=== PATIENT | female | born 1940 | race Caucasian/White ===

== ENCOUNTER → 2016-09-26 | Outpatient (CLI) | payer OTHER ==
--- NOTE | 2016-09-26 11:21 | REP ---
Clinical: Acute sciatica and back pain. Technique: AP, lateral, bilateral oblique and coned-down views of the lumbosacral spine. Findings: Alignment and lordosis maintained. Moderate multilevel degenerative disc osteophyte complexes are appreciated. Findings include hypertrophic facet changes at L4-5 and L5-L1. No acute fracture / compression injury or subluxation. Impression: 1. Moderate multilevel degenerative disc osteophyte complexes. 2. Alignment maintained without acute fracture / compression injury or subluxation. 3. If the patient remains symptomatic consider MRI for further investigation.
== END ==
LOC: M CLY 10:25
PROVIDERS: ATTEND Family Medicine
DX: M47.817 Spondylosis without myelopathy or radiculopathy, lumbosacral region (principal)

== ENCOUNTER → 2016-10-07 | Outpatient (CLI) | payer OTHER ==
--- NOTE | 2016-10-07 18:27 | REP ---
MR LUMBAR SPINE WITHOUT CONTRAST: HISTORY: Back pain. Decreased signal intensity on T2-weighted images is present in the lumbar intervertebral discs. The disc are decreased in height. These findings are consistent with disc degeneration. There is no disc bulge or herniation at the L1-2 and L2-3 levels. There is hypertrophy of the posterior articulating facets at the L2-3 level. The nerves exit the neural foramina without compression. A diffuse disc bulge is present at the L3-4 level. There is minimal compression of the thecal sac. There is hypertrophy of the posterior articulating facets. The L3 nerves exit the neural foramina without compression. A diffuse disc bulge is present at the L4-5 level. There is minimal compression of the thecal sac. There is hypertrophy of the posterior articulating facets. The L4 nerves exit the neural foramina without compression. A diffuse disc bulge is present at the L5-S1 level. This abuts the thecal sac. There is hypertrophy of the posterior articulating facets. There is compression of the left L5 nerve in the neural foramen. The right L5 nerve exits the neural foramina without compression. The conus medullaris is normal in appearance terminating at the level of the T12-L1 intervertebral disc . Hemangiomas are present in the T12 and L1 vertebral bodies. Normal signal intensity is present in the remaining lumbar vertebral bodies. IMPRESSION: 1. Diffuse disc bulges at the L3-4 and L4-5 levels with minimal thecal sac compression. 2. Diffuse disc bulge at the L5-S1 level. This abuts the thecal sac. There is compression of the left L5 nerve in the neural foramen. Signed by Shukri Angulo MD 10/08/2016 08:16 A
== END ==
LOC: M RAD 15:21
PROVIDERS: ATTEND Family Medicine
DX: M54.17 Radiculopathy, lumbosacral region (principal); M51.26 Other intervertebral disc displacement, lumbar region; M12.88 Other specific arthropathies, not elsewhere classified, other specified site; M51.27 Other intervertebral disc displacement, lumbosacral region
CPT/HCPCS: 72148; G0463

== ENCOUNTER → 2016-12-15 | Outpatient (REF) | payer OTHER ==
[2016-12-15 17:36] LABS: ALBUMIN 3.5 GM/DL (3.2-5.2); ALBUMIN/GLOBULIN RATIO 1.09 (1.00-1.93); ALKALINE PHOSPHATASE 72 U/L (45-117); ALT/SGPT 21 U/L (12-78); ANION GAP 7 MEQ/L (8-16); AST/SGOT 13 U/L (15-37); BILIRUBIN,TOTAL 0.4 MG/DL (0.2-1.0); BLOOD UREA NITROGEN 19 MG/DL (7-18); CALCIUM LEVEL 8.9 MG/DL (8.8-10.2); CARBON DIOXIDE LEVEL 29 MEQ/L (21-32); CHLORIDE LEVEL 105 MEQ/L (98-107); CHOLESTEROL LEVEL 236 MG/DL (<200); CREATININE FOR GFR 0.64 MG/DL (0.55-1.02); GLOMERULAR FILTRATION RATE > 60.0 (>39); GLUCOSE, FASTING 79 MG/DL (83-110); POTASSIUM SERUM 4.4 MEQ/L (3.5-5.1); SODIUM LEVEL 141 MEQ/L (136-145); TOTAL PROTEIN 6.7 GM/DL (6.4-8.2); TRIGLYCERIDES LEVEL 75 MG/DL (<150)
[2016-12-15 19:03] LABS: BASO % 0.4 % (0.0-1.0); EOS # 0.1 K/mm3 (0.0-0.50); LARGE UNSTAINED CELL # 0.1 K/mm3 (0.0-0.4); LARGE UNSTAINED CELL % 1.9 % (0.0-4.0); LYMPH # 1.9 K/mm3 (1.5-4.5); LYMPH % 26.7 % (24.0-44.0); MEAN CORPUSCULAR HEMOGLOBIN 30.5 pg (27.0-33.0); MEAN CORPUSCULAR HGB CONC 33.2 g/dl (32.0-36.5); MEAN CORPUSCULAR VOLUME 91.9 fl (80.0-96.0); MONO # 0.5 K/mm3 (0.0-0.8); MONO % 8.2 % (0.0-5.0); NEUTROPHILS % 60.8 % (36.0-66.0); PLATELET COUNT, AUTOMATED 301 k/mm3 (150-450); RED CELL DISTRIBUTION WIDTH 12.2 % (11.5-14.5); WHITE BLOOD COUNT 6.5 K/mm3 (4.0-10.0)
== END ==
LOC: M SFHCCLAY 09:55
PROVIDERS: ATTEND Family Medicine
DX: Z13.0 Encounter for screening for diseases of the blood and blood-forming organs and certain disorders involving the immune mechanism (principal); E78.2 Mixed hyperlipidemia; E03.9 Hypothyroidism, unspecified; M54.17 Radiculopathy, lumbosacral region; K21.9 Gastro-esophageal reflux disease without esophagitis; Z23 Encounter for immunization; Z79.82 Long term (current) use of aspirin; Z79.899 Other long term (current) drug therapy
CPT/HCPCS: 80053; 80061; 83540; 84436; 84443; 84480; 85025; 90732; G0009; G0463

== ENCOUNTER → 2017-10-05 | Outpatient (REF) | payer OTHER ==
[2017-10-05 12:38] LABS: ALBUMIN 3.6 GM/DL (3.2-5.2); ALBUMIN/GLOBULIN RATIO 1.16 (1.00-1.93); ALKALINE PHOSPHATASE 76 U/L (45-117); ALT/SGPT 22 U/L (12-78); ANION GAP 5 MEQ/L (8-16); AST/SGOT 12 U/L (7-37); BILIRUBIN,TOTAL 0.3 MG/DL (0.2-1.0); BLOOD UREA NITROGEN 22 MG/DL (7-18); CALCIUM LEVEL 8.9 MG/DL (8.8-10.2); CARBON DIOXIDE LEVEL 31 MEQ/L (21-32); CHLORIDE LEVEL 107 MEQ/L (98-107); CHOLESTEROL LEVEL 255 MG/DL (<200); CREATININE FOR GFR 0.75 MG/DL (0.55-1.30); GLOMERULAR FILTRATION RATE > 60.0 (>39); GLUCOSE, FASTING 84 MG/DL (70-100); HDL CHOLESTEROL 51 MG/DL (>40); LDL CHOLESTEROL 175.8 MG/DL (<100); NON-HDL-C 204 MG/DL; POTASSIUM SERUM 4.6 MEQ/L (3.5-5.1); SODIUM LEVEL 143 MEQ/L (136-145); TOTAL PROTEIN 6.7 GM/DL (6.4-8.2); TRIGLYCERIDES LEVEL 141 MG/DL (<150)
== END ==
LOC: M SFHCCLAY 08:14
DX: E78.2 Mixed hyperlipidemia (principal)
CPT/HCPCS: 80053

== ENCOUNTER → 2017-11-19 | Outpatient (REF) | payer OTHER ==
[2017-11-20 10:08] LABS: HEPATITIS C VIRUS ABY INDEX 0.1 INDEX (<0.8)
== END ==
LOC: M SFHCCLAY 11:15
DX: Z11.59 Encounter for screening for other viral diseases (principal)
CPT/HCPCS: 86803

== ENCOUNTER → 2017-12-14 | Outpatient (CLI) | payer OTHER | LOC: M CLY 09:24 | DX: M19.042 Primary osteoarthritis, left hand (principal); M25.742 Osteophyte, left hand; M19.032 Primary osteoarthritis, left wrist; M79.642 Pain in left hand; M25.532 Pain in left wrist | CPT/HCPCS: 73100; G0463 ==

== ENCOUNTER → 2018-02-01 | Outpatient (REF) | payer OTHER ==
[2018-02-01 13:41] LABS: ALBUMIN 3.4 GM/DL (3.2-5.2); ALKALINE PHOSPHATASE 74 U/L (45-117); ALT/SGPT 23 U/L (12-78); ANION GAP 7 MEQ/L (8-16); AST/SGOT 15 U/L (7-37); BILIRUBIN,TOTAL 0.5 MG/DL (0.2-1.0); BLOOD UREA NITROGEN 18 MG/DL (7-18); CALCIUM LEVEL 8.8 MG/DL (8.8-10.2); CARBON DIOXIDE LEVEL 28 MEQ/L (21-32); CHLORIDE LEVEL 107 MEQ/L (98-107); CHOLESTEROL LEVEL 219 MG/DL (<200); CHOLESTEROL RISK RATIO 3.775 (<5); GLOMERULAR FILTRATION RATE > 60.0 (>39); GLUCOSE, FASTING 76 MG/DL (70-100); HDL CHOLESTEROL 58 MG/DL (>40); LDL CHOLESTEROL 131 MG/DL (<100); NON-HDL-C 161 MG/DL; POTASSIUM SERUM 4.4 MEQ/L (3.5-5.1); SODIUM LEVEL 142 MEQ/L (136-145); TOTAL PROTEIN 6.8 GM/DL (6.4-8.2); TRIGLYCERIDES LEVEL 151 MG/DL (<150)
== END ==
LOC: M SFHCCLAY 09:34
DX: E78.2 Mixed hyperlipidemia (principal); E03.9 Hypothyroidism, unspecified
CPT/HCPCS: 84443

== ENCOUNTER → 2018-08-02 | Outpatient (REF) | payer OTHER | LOC: M SFHCCLAY 09:17 | PROVIDERS: ATTEND Family Medicine | DX: E03.9 Hypothyroidism, unspecified (principal) ==

== ENCOUNTER → 2019-02-03 | Outpatient (REF) | payer MEDICARE ==
[2019-02-03 17:03] LABS: ALBUMIN 3.3 GM/DL (3.2-5.2); ALT/SGPT 18 U/L (12-78); BILIRUBIN,TOTAL 0.4 MG/DL (0.2-1.0); BLOOD UREA NITROGEN 16 MG/DL (7-18); CALCIUM LEVEL 9.3 MG/DL (8.8-10.2); CARBON DIOXIDE LEVEL 30 MEQ/L (21-32); CHLORIDE LEVEL 108 MEQ/L (98-107); CHOLESTEROL LEVEL 243 MG/DL (<200); CHOLESTEROL RISK RATIO 3.681 (<5); CREATININE FOR GFR 0.74 MG/DL (0.55-1.30); GLOMERULAR FILTRATION RATE > 60.0 (>39); GLUCOSE, FASTING 83 MG/DL (70-100); HDL CHOLESTEROL 66 MG/DL (>40); LDL CHOLESTEROL 137 MG/DL (<100); NON-HDL-C 177 MG/DL; POTASSIUM SERUM 4.3 MEQ/L (3.5-5.1); SODIUM LEVEL 141 MEQ/L (136-145); TOTAL PROTEIN 6.7 GM/DL (6.4-8.2); TRIGLYCERIDES LEVEL 199 MG/DL (<150)
[2019-02-03 17:04] LABS: BASO % 0.5 % (0.0-1.0); EOS # 0.1 10^3/uL (0.0-0.5); EOS % 1.8 % (0.0-3.0); HEMATOCRIT 43.3 % (36.0-47.0); HEMOGLOBIN 14.1 g/dl (12.0-15.5); LYMPH % 24.9 % (24.0-44.0); MEAN CORPUSCULAR HEMOGLOBIN 30.7 pg (27.0-33.0); MEAN CORPUSCULAR HGB CONC 32.6 g/dl (32.0-36.5); MEAN CORPUSCULAR VOLUME 94.3 fl (80.0-96.0); MONO # 0.8 10^3/uL (0.0-0.8); MONO % 10.4 % (0.0-5.0); NEUTROPHILS # 4.9 10^3/uL (1.5-8.5); NEUTROPHILS % 62.1 % (36.0-66.0); PLATELET COUNT, AUTOMATED 278 10^3/uL (150-450); RED BLOOD COUNT 4.59 10^6/uL (4.00-5.40); WHITE BLOOD COUNT 7.9 10^3/uL (4.0-10.0)
== END ==
LOC: M SFHCCLAY 11:30
PROVIDERS: ATTEND Family Medicine
DX: E78.2 Mixed hyperlipidemia (principal); E03.9 Hypothyroidism, unspecified; K21.9 Gastro-esophageal reflux disease without esophagitis

== ENCOUNTER → 2020-02-07 | Outpatient (REF) | payer MEDICARE ==
[2020-02-07 16:51] LABS: ALBUMIN 3.5 GM/DL (3.2-5.2); ALT/SGPT 19 U/L (12-78); BILIRUBIN,TOTAL 0.4 MG/DL (0.2-1.0); BLOOD UREA NITROGEN 17 MG/DL (7-18); CALCIUM LEVEL 9.6 MG/DL (8.8-10.2); CARBON DIOXIDE LEVEL 30 MEQ/L (21-32); CHLORIDE LEVEL 105 MEQ/L (98-107); CHOLESTEROL LEVEL 227 MG/DL (<200); CHOLESTEROL RISK RATIO 3.721 (<5); CREATININE FOR GFR 0.77 MG/DL (0.55-1.30); GLOMERULAR FILTRATION RATE > 60.0 (>39); GLUCOSE, FASTING 80 MG/DL (70-100); HDL CHOLESTEROL 61 MG/DL (>40); LDL CHOLESTEROL 139 MG/DL (<100); MAGNESIUM LEVEL 2.2 MG/DL (1.8-2.4); NON-HDL-C 166 MG/DL; POTASSIUM SERUM 4.8 MEQ/L (3.5-5.1); SODIUM LEVEL 140 MEQ/L (136-145); TOTAL PROTEIN 6.8 GM/DL (6.4-8.2); TRIGLYCERIDES LEVEL 135 MG/DL (<150)
== END ==
LOC: M SFHCCLAY 10:24
PROVIDERS: ATTEND Family Medicine
DX: E03.9 Hypothyroidism, unspecified (principal); E78.2 Mixed hyperlipidemia; K21.9 Gastro-esophageal reflux disease without esophagitis

== ENCOUNTER → 2021-01-23 | Outpatient (REF) | payer MEDICARE ==
[2021-01-23 12:01] LABS: HEMATOCRIT 44.5 % (36.0-47.0); HEMOGLOBIN 14.6 g/dl (12.0-15.5); MEAN CORPUSCULAR HEMOGLOBIN 30.3 pg (27.0-33.0); MEAN CORPUSCULAR HGB CONC 32.8 g/dl (32.0-36.5); MEAN CORPUSCULAR VOLUME 92.3 fl (80.0-96.0); PLATELET COUNT, AUTOMATED 282 10^3/uL (150-450); RED BLOOD COUNT 4.82 10^6/uL (4.00-5.40); WHITE BLOOD COUNT 7.6 10^3/uL (4.0-10.0)
== END ==
LOC: M LABDRAWC 11:24
PROVIDERS: ATTEND Nurse Practitioner
DX: I48.0 Paroxysmal atrial fibrillation (principal); Z79.01 Long term (current) use of anticoagulants

== ENCOUNTER → 2021-02-08 | Outpatient (REF) | payer MEDICARE ==
[2021-02-08 16:30] LABS: ALBUMIN 3.7 GM/DL (3.2-5.2); ALT/SGPT 22 U/L (12-78); BILIRUBIN,TOTAL 0.4 MG/DL (0.2-1.0); BLOOD UREA NITROGEN 16 MG/DL (7-18); CALCIUM LEVEL 9.9 MG/DL (8.8-10.2); CARBON DIOXIDE LEVEL 31 MEQ/L (21-32); CHLORIDE LEVEL 105 MEQ/L (98-107); CHOLESTEROL LEVEL 245 MG/DL (<200); CHOLESTEROL RISK RATIO 4.622 (<5); CREATININE FOR GFR 0.68 MG/DL (0.55-1.30); GLOMERULAR FILTRATION RATE > 60.0 (>32); GLUCOSE, FASTING 88 MG/DL (70-100); HDL CHOLESTEROL 53 MG/DL (>40); LDL CHOLESTEROL 157 MG/DL (<100); MAGNESIUM LEVEL 2.4 MG/DL (1.8-2.4); NON-HDL-C 192 MG/DL; POTASSIUM SERUM 4.9 MEQ/L (3.5-5.1); SODIUM LEVEL 139 MEQ/L (136-145); TOTAL PROTEIN 6.8 GM/DL (6.4-8.2); TRIGLYCERIDES LEVEL 176 MG/DL (<150)
== END ==
LOC: M SFHCCLAY 09:38
PROVIDERS: ATTEND Family Medicine
DX: E03.9 Hypothyroidism, unspecified (principal); E78.2 Mixed hyperlipidemia; K21.9 Gastro-esophageal reflux disease without esophagitis

== ENCOUNTER → 2022-01-13 | Outpatient (REF) | payer MEDICARE ==
[2022-01-13 13:02] LABS: CHOLESTEROL RISK RATIO 3.58 (<5)
== END ==
LOC: M LABDRAWC 11:20
PROVIDERS: ATTEND Internal Medicine Cardiovascular Disease
DX: I48.0 Paroxysmal atrial fibrillation (principal); E78.2 Mixed hyperlipidemia

== ENCOUNTER → 2022-02-10 | Outpatient (REF) | payer MEDICARE ==
[2022-02-10 17:17] LABS: BASO % 0.5 % (0.0-1.0); EOS # 0.1 10^3/uL (0.0-0.5); EOS % 1.4 % (0.0-3.0); HEMOGLOBIN 13.6 g/dl (12.0-15.5); LYMPH # 1.9 10^3/uL (1.5-5.0); LYMPH % 30.7 % (24.0-44.0); MEAN CORPUSCULAR HEMOGLOBIN 30.1 pg (27.0-33.0); MEAN CORPUSCULAR HGB CONC 32.4 g/dl (32.0-36.5); MEAN CORPUSCULAR VOLUME 92.9 fl (80.0-96.0); MONO # 0.7 10^3/uL (0.0-0.8); MONO % 11.6 % (2.0-8.0); NEUTROPHILS # 3.5 10^3/uL (1.5-8.5); NEUTROPHILS % 55.6 % (36.0-66.0); PLATELET COUNT, AUTOMATED 270 10^3/uL (150-450); RED BLOOD COUNT 4.52 10^6/uL (4.00-5.40); WHITE BLOOD COUNT 6.3 10^3/uL (4.0-10.0)
[2022-02-10 17:42] LABS: ALBUMIN 3.4 GM/DL (3.2-5.2); ALT/SGPT 28 U/L (12-78); BILIRUBIN,TOTAL 0.3 MG/DL (0.2-1.0); BLOOD UREA NITROGEN 16 MG/DL (7-18); CALCIUM LEVEL 9.6 MG/DL (8.8-10.2); CARBON DIOXIDE LEVEL 29 MEQ/L (21-32); CHLORIDE LEVEL 106 MEQ/L (98-107); CHOLESTEROL LEVEL 216 MG/DL (<200); CREATININE FOR GFR 0.66 MG/DL (0.55-1.30); GLOMERULAR FILTRATION RATE > 60.0 (>32); GLUCOSE, FASTING 93 MG/DL (70-100); HDL CHOLESTEROL 50 MG/DL (>40); LDL CHOLESTEROL 122 MG/DL (<100); MAGNESIUM LEVEL 2.2 MG/DL (1.8-2.4); NON-HDL-C 166 MG/DL; POTASSIUM SERUM 4.5 MEQ/L (3.5-5.1); SODIUM LEVEL 140 MEQ/L (136-145); THYROID STIMULATING HORMONE 0.967 uIU/ML (0.358-3.740); TOTAL PROTEIN 6.5 GM/DL (6.4-8.2); TRIGLYCERIDES LEVEL 221 MG/DL (<150)
== END ==
LOC: M SFHCCLAY 10:49
PROVIDERS: ATTEND Family Medicine
DX: E78.2 Mixed hyperlipidemia (principal); E03.9 Hypothyroidism, unspecified; R00.1 Bradycardia, unspecified; K21.9 Gastro-esophageal reflux disease without esophagitis

== ENCOUNTER → 2022-05-28 | Outpatient (CLI) | payer MEDICARE | LOC: M RAD 12:39 | PROVIDERS: ATTEND Family Medicine | DX: R22.1 Localized swelling, mass and lump, neck (principal) ==

== ENCOUNTER → 2022-10-13 | Outpatient (CLI) | payer MEDICARE | LOC: M WHC 12:46 | PROVIDERS: ATTEND Obstetrics & Gynecology | DX: Z12.31 Encounter for screening mammogram for malignant neoplasm of breast (principal) ==

== ENCOUNTER → 2023-02-16 | Outpatient (REF) | payer MEDICARE ==
[2023-02-16 17:26] LABS: HEMATOCRIT 43.2 % (36.0-47.0); HEMOGLOBIN 14.3 g/dl (12.0-15.5); MEAN CORPUSCULAR HEMOGLOBIN 30.9 pg (27.0-33.0); MEAN CORPUSCULAR HGB CONC 33.1 g/dl (32.0-36.5); MEAN CORPUSCULAR VOLUME 93.3 fl (80.0-96.0); PLATELET COUNT, AUTOMATED 276 10^3/uL (150-450); RED BLOOD COUNT 4.63 10^6/uL (4.00-5.40); WHITE BLOOD COUNT 7.5 10^3/uL (4.0-10.0)
[2023-02-16 17:56] LABS: ALBUMIN 3.4 G/DL (3.2-5.2); ALKALINE PHOSPHATASE 76 U/L (46-116); ALT/SGPT 18 U/L (7.0-40); AST/SGOT 12 U/L (<34); BILIRUBIN,TOTAL 0.4 MG/DL (0.3-1.2); BLOOD UREA NITROGEN 14 MG/DL (9-23); CALCIUM LEVEL 9.5 MG/DL (8.3-10.6); CARBON DIOXIDE LEVEL 29 MMOL/L (20-31); CHLORIDE LEVEL 104 MMOL/L (98-107); CHOLESTEROL LEVEL 230 MG/DL (<200); CHOLESTEROL RISK RATIO 4.44 (<5); CREATININE FOR GFR 0.83 MG/DL (0.55-1.30); FREE T4 1.22 NG/DL (0.89-1.76); GLOMERULAR FILTRATION RATE > 60.0 (>32); GLUCOSE, FASTING 73 MG/DL (74-106); HDL CHOLESTEROL 51.7 MG/DL (>40); LDL CHOLESTEROL 135.5 MG/DL (<100); MAGNESIUM LEVEL 2.2 MG/DL (1.8-2.4); NON-HDL-C 178.3 MG/DL; SODIUM LEVEL 139 MMOL/L (136-145); THYROID STIMULATING HORMONE 0.732 uIU/ML (0.55-4.78); TOTAL PROTEIN 6.3 G/DL (5.7-8.2); TOTAL T3 132.4 NG/DL (60.0-181.0); TRIGLYCERIDES LEVEL 214 MG/DL (<150)
== END ==
LOC: M SFHCCLAY 14:57
PROVIDERS: ATTEND Family Medicine
DX: E03.9 Hypothyroidism, unspecified (principal); E78.2 Mixed hyperlipidemia; I48.0 Paroxysmal atrial fibrillation; K21.9 Gastro-esophageal reflux disease without esophagitis

== ENCOUNTER → 2023-05-20 | Outpatient (REF) | payer MEDICARE ==
[2023-05-20 18:25] LABS: BLOOD UREA NITROGEN 16 MG/DL (9-23); CALCIUM LEVEL 9.2 MG/DL (8.3-10.6); CARBON DIOXIDE LEVEL 31 MMOL/L (20-31); CHLORIDE LEVEL 107 MMOL/L (98-107); CREATININE FOR GFR 0.69 MG/DL (0.55-1.30); GLOMERULAR FILTRATION RATE > 60.0 (>32); GLUCOSE, FASTING 83 MG/DL (74-106); POTASSIUM SERUM 4.5 MMOL/L (3.5-5.1); SODIUM LEVEL 141 MMOL/L (136-145)
== END ==
LOC: M LABDRAWC 16:50
PROVIDERS: ATTEND Internal Medicine Cardiovascular Disease
DX: I48.0 Paroxysmal atrial fibrillation (principal)

== ENCOUNTER 2023-06-19 08:23 | Emergency (ER) | payer MEDICARE ==
[~2023-06-19] VITALS: Ht 165.1 cm; Wt 72.4 kg
[2023-06-19] MEDS ORDERED: ELIQ5TAB (08:35)
[2023-06-19] MEDS ORDERED: LEVO75TA4 (08:35)
[2023-06-19] MEDS ORDERED: METO1TAB87 (08:35)
[2023-06-19] MEDS: ONDANSETRON 4MG ORAL DISINTEGRATING TAB PO ONE (11:09)
[2023-06-19] MEDS: NORCO, ANEXSIA 5/325MG TABLET (HYDROcodone/ACETAMINOPHEN) PO ONE (11:09)
[2023-06-19 11:29] LABS: BASO % 0.3 % (0.0-1.0); EOS % 0.2 % (0.0-3.0); HEMATOCRIT 44.3 % (36.0-47.0); LYMPH # 1.3 10^3/uL (1.5-5.0); LYMPH % 8.6 % (24.0-44.0); MEAN CORPUSCULAR HGB CONC 33.9 g/dl (32.0-36.5); MEAN CORPUSCULAR VOLUME 91.5 fl (80.0-96.0); MONO # 0.9 10^3/uL (0.0-0.8); MONO % 5.9 % (2.0-8.0); NEUTROPHILS # 12.7 10^3/uL (1.5-8.5); NEUTROPHILS % 84.7 % (36.0-66.0); PLATELET COUNT, AUTOMATED 318 10^3/uL (150-450); RED BLOOD COUNT 4.84 10^6/uL (4.00-5.40)
[2023-06-19 11:35] LABS: ERYTHROCYTE SEDIMENTATION RATE 29 mm/hr (0-30)
[2023-06-19 11:56] LABS: BLOOD UREA NITROGEN 13 MG/DL (9-23); CALCIUM LEVEL 9.2 MG/DL (8.3-10.6); CARBON DIOXIDE LEVEL 29 MMOL/L (20-31); CHLORIDE LEVEL 106 MMOL/L (98-107); CREATININE FOR GFR 0.66 MG/DL (0.55-1.30); GLOMERULAR FILTRATION RATE > 60.0 (>32); GLUCOSE, FASTING 93 MG/DL (74-106); POTASSIUM SERUM 4.4 MMOL/L (3.5-5.1); SODIUM LEVEL 139 MMOL/L (136-145)
[2023-06-19 12:02] LABS: URIC ACID 3.5 MG/DL (3.1-7.8)
[2023-06-19] MEDS: CEPHALEXIN 500 MG CAP PO ONE (13:26)
[2023-06-19 13:30] VITALS: BP 147/77; TEMP 97.5; O2SAT 97
[2023-06-19] MEDS ORDERED: CEPH500C PO (13:31)
[2023-06-19] MEDS ORDERED: HYDR-3713 PO (13:31)
== END 2023-06-19 13:38 | disposition home or self-care (01) ==
LOC: M ED 08:23
DX: L03.114 Cellulitis of left upper limb (principal); I10 Essential (primary) hypertension; Z88.8 Allergy status to other drugs, medicaments and biological substances; Z79.1 Long term (current) use of non-steroidal anti-inflammatories (NSAID); Z79.899 Other long term (current) drug therapy

== ENCOUNTER → 2023-06-30 | Outpatient (REF) | payer MEDICARE ==
[~2023-06-30] MED LIST: CEPH500C PO; ELIQ5TAB; HYDR-3713 PO; LEVO75TA4; METO1TAB87
[2023-06-30 17:52] LABS: BASO # 0.1 10^3/uL (0.0-0.2); BASO % 0.8 % (0.0-1.0); EOS # 0.1 10^3/uL (0.0-0.5); EOS % 1.6 % (0.0-3.0); HEMATOCRIT 44.2 % (36.0-47.0); HEMOGLOBIN 14.4 g/dl (12.0-15.5); LYMPH # 2.4 10^3/uL (1.5-5.0); LYMPH % 34.1 % (24.0-44.0); MEAN CORPUSCULAR HEMOGLOBIN 30.1 pg (27.0-33.0); MEAN CORPUSCULAR HGB CONC 32.6 g/dl (32.0-36.5); MEAN CORPUSCULAR VOLUME 92.5 fl (80.0-96.0); MONO # 0.6 10^3/uL (0.0-0.8); MONO % 8.8 % (2.0-8.0); NEUTROPHILS # 3.9 10^3/uL (1.5-8.5); NEUTROPHILS % 54.6 % (36.0-66.0); PLATELET COUNT, AUTOMATED 418 10^3/uL (150-450); RED BLOOD COUNT 4.78 10^6/uL (4.00-5.40); WHITE BLOOD COUNT 7.1 10^3/uL (4.0-10.0)
[2023-06-30 18:08] LABS: ALBUMIN 3.3 G/DL (3.2-5.2); ALKALINE PHOSPHATASE 77 U/L (46-116); ALT/SGPT 13 U/L (7.0-40); AST/SGOT 11 U/L (<34); BILIRUBIN,TOTAL 0.3 MG/DL (0.3-1.2); BLOOD UREA NITROGEN 19 MG/DL (9-23); CALCIUM LEVEL 9.9 MG/DL (8.3-10.6); CARBON DIOXIDE LEVEL 30 MMOL/L (20-31); CHLORIDE LEVEL 105 MMOL/L (98-107); CREATININE FOR GFR 0.79 MG/DL (0.55-1.30); GLOMERULAR FILTRATION RATE > 60.0 (>32); GLUCOSE, FASTING 80 MG/DL (74-106); SODIUM LEVEL 139 MMOL/L (136-145); TOTAL PROTEIN 6.6 G/DL (5.7-8.2)
[2023-06-30 18:09] LABS: FREE T4 1.21 NG/DL (0.89-1.76)
== END ==
LOC: M SFHCCLAY 11:29
PROVIDERS: ATTEND Family Medicine
DX: L03.116 Cellulitis of left lower limb (principal); E03.9 Hypothyroidism, unspecified

== ENCOUNTER → 2024-02-22 | Outpatient (REF) | payer MEDICARE ==
[2024-02-22 19:46] LABS: ALBUMIN 3.4 G/DL (3.2-5.2); ALKALINE PHOSPHATASE 90 U/L (35-104); ALT/SGPT 17 U/L (7.0-40); AST/SGOT 9 U/L (<34); BILIRUBIN,TOTAL 0.5 MG/DL (0.3-1.2); BLOOD UREA NITROGEN 13 MG/DL (9-23); CALCIUM LEVEL 9.6 MG/DL (8.3-10.6); CARBON DIOXIDE LEVEL 30 MMOL/L (20-31); CHLORIDE LEVEL 103 MMOL/L (98-107); CHOLESTEROL LEVEL 260 MG/DL (<200); CHOLESTEROL RISK RATIO 5.23 (<5); CREATININE FOR GFR 0.73 MG/DL (0.55-1.30); GLOMERULAR FILTRATION RATE > 60.0 (>32); GLUCOSE, FASTING 83 MG/DL (74-106); HDL CHOLESTEROL 49.7 MG/DL (>40); LDL CHOLESTEROL 154.7 MG/DL (<100); MAGNESIUM LEVEL 2.1 MG/DL (1.8-2.4); NON-HDL-C 210.3 MG/DL; POTASSIUM SERUM 4.9 MMOL/L (3.5-5.1); SODIUM LEVEL 138 MMOL/L (136-145); TOTAL PROTEIN 6.9 G/DL (5.7-8.2); TRIGLYCERIDES LEVEL 278 MG/DL (<150)
[2024-02-22 19:47] LABS: HEMATOCRIT 44.9 % (36.0-47.0); HEMOGLOBIN 14.8 g/dl (12.0-15.5); MEAN CORPUSCULAR HEMOGLOBIN 30.8 pg (27.0-33.0); MEAN CORPUSCULAR VOLUME 93.3 fl (80.0-96.0); PLATELET COUNT, AUTOMATED 278 10^3/uL (150-450); RED BLOOD COUNT 4.81 10^6/uL (4.00-5.40); WHITE BLOOD COUNT 8.3 10^3/uL (4.0-10.0)
[2024-02-22 19:48] LABS: FREE T4 1.14 NG/DL (0.89-1.76)
== END ==
LOC: M SFHCCLAY 13:17
PROVIDERS: ATTEND Family Medicine
DX: E78.2 Mixed hyperlipidemia (principal); K21.9 Gastro-esophageal reflux disease without esophagitis; E03.9 Hypothyroidism, unspecified

== ENCOUNTER 2024-11-21 09:27 | Emergency (ER) | payer MEDICARE ==
[~2024-11-21] VITALS: Ht 165.1 cm; Wt 69.5 kg
[2024-11-21 09:31] VITALS: TEMP 96.5
[2024-11-21] MEDS: ONDANSETRON 4MG 2ML VIAL IV ONE (10:14)
[2024-11-21] MEDS: MORPHINE 4 MG/ML 1 ML VIAL IV ONE (10:14)
[2024-11-21 10:41] LABS: BASO # 0.0 10^3/uL (0.0-0.2); BASO % 0.2 % (0.0-1.0); EOS # 0.1 10^3/uL (0.0-0.5); EOS % 0.8 % (0.0-3.0); LYMPH # 1.5 10^3/uL (1.5-5.0); LYMPH % 15.8 % (24.0-44.0); MONO # 1.0 10^3/uL (0.0-0.8); MONO % 10.9 % (2.0-8.0); NEUTROPHILS # 6.6 10^3/uL (1.5-8.5); NEUTROPHILS % 72.2 % (36.0-66.0); PLATELET COUNT, AUTOMATED 266 10^3/uL (150-450)
[2024-11-21 10:59] LABS: C REACTIVE PROTEIN QUANTITATIV 0.74 MG/DL (<1.0); CALCIUM LEVEL 9.4 MG/DL (8.3-10.6); CARBON DIOXIDE LEVEL 30.0 MMOL/L (20-31); CHLORIDE LEVEL 106.0 MMOL/L (98-107); CREATININE FOR GFR 0.77 MG/DL (0.55-1.30); GLOMERULAR FILTRATION RATE 76.5 (>32); POTASSIUM SERUM 4.6 MMOL/L (3.5-5.1); SODIUM LEVEL 143.0 MMOL/L (136-145)
[2024-11-21 11:00] LABS: ERYTHROCYTE SEDIMENTATION RATE 21 mm/hr (0-30)
[2024-11-21 12:35] VITALS: BP 172/74; O2SAT 100
[2024-11-21] MEDS ORDERED: PRED20TA PO (12:43)
[2024-11-21] MEDS ORDERED: TRAM50TA2 PO (12:43)
[2024-11-24 14:41] LABS: LYME TOTAL ANTIBODY CIA <= 0.90 Index (<=0.90)
== END 2024-11-21 12:53 | disposition home or self-care (01) ==
LOC: M ED 09:27
DX: M25.462 Effusion, left knee (principal); M17.12 Unilateral primary osteoarthritis, left knee; M51.361 Other intervertebral disc degeneration, lumbar region with lower extremity pain only; Z88.5 Allergy status to narcotic agent; M48.07 Spinal stenosis, lumbosacral region; Z79.899 Other long term (current) drug therapy
CPT/HCPCS: 72131; 73564; 80048; 84550; 85025; 85652; 86140; 86618; 93971; 96374; 96375; 99284; J2405

== ENCOUNTER → 2024-12-13 | Outpatient (CLI) | payer MEDICARE ==
[~2024-12-13] MED LIST changes: +PRED20TA PO; +TRAM50TA2 PO
== END ==
LOC: M PLAIMG 12:36
PROVIDERS: ATTEND Orthopaedic Surgery
DX: M25.562 Pain in left knee (principal); M19.049 Primary osteoarthritis, unspecified hand; M71.22 Synovial cyst of popliteal space [Baker], left knee; M25.462 Effusion, left knee; M94.262 Chondromalacia, left knee

== ENCOUNTER → 2025-01-18 | Outpatient (REF) | payer MEDICARE ==
[2025-01-18 13:36] LABS: ALT/SGPT 13.0 U/L (7.0-40); AST/SGOT 15.0 U/L (<34); CHOLESTEROL LEVEL 229.0 MG/DL (<200); CHOLESTEROL RISK RATIO 4.57 (<5); CPK CREATINE PHOSPHOKINASE 35.0 U/L (34-145); LDL CHOLESTEROL 145.7 MG/DL (<100); NON-HDL-C 178.9 MG/DL; TRIGLYCERIDES LEVEL 166.0 MG/DL (<150)
== END ==
LOC: M LABDRAWC 12:59
PROVIDERS: ATTEND Internal Medicine Cardiovascular Disease
DX: E78.2 Mixed hyperlipidemia (principal)

== ENCOUNTER → 2025-02-16 | Outpatient (REF) | payer MEDICARE ==
[2025-02-16 17:42] LABS: ALT/SGPT 15.0 U/L (7.0-40); AST/SGOT 14.0 U/L (<34); CALCIUM LEVEL 8.9 MG/DL (8.3-10.6); CARBON DIOXIDE LEVEL 30.0 MMOL/L (20-31); CHLORIDE LEVEL 102.0 MMOL/L (98-107); CREATININE FOR GFR 0.68 MG/DL (0.55-1.30); GLOMERULAR FILTRATION RATE 85.8 (>32); POTASSIUM SERUM 4.6 MMOL/L (3.5-5.1); SODIUM LEVEL 140.0 MMOL/L (136-145)
[2025-02-16 17:43] LABS: TOTAL T3 101.6 NG/DL (60.0-181.0)
[2025-02-16 17:45] LABS: FREE T4 1.25 NG/DL (0.89-1.76)
== END ==
LOC: M SFHCCLAY 13:30
PROVIDERS: ATTEND Family Medicine
DX: E78.2 Mixed hyperlipidemia (principal); E03.9 Hypothyroidism, unspecified

== ENCOUNTER → 2025-03-08 | Outpatient (CLI) | payer MEDICARE | LOC: M CLY 14:46 | PROVIDERS: ATTEND Family Medicine | DX: M51.360 Other intervertebral disc degeneration, lumbar region with discogenic back pain only (principal) ==